=== PATIENT | male | born 1985 | race Caucasian/White ===

== ENCOUNTER 2018-06-06 01:01 | Emergency (ER) | payer SELFPAY ==
[~2018-06-06] VITALS: Ht 170.2 cm; Wt 70.3 kg
[2018-06-06] MEDS ORDERED: GLUCAGON,HUMAN RECOMBINANT 1 MG VIAL IVP ONE (01:15)
[2018-06-06] MEDS ORDERED: GLUCAGON,HUMAN RECOMBINANT 1 MG VIAL ONE (01:20)
--- NOTE | 2018-06-06 02:38 | NUR ---
Patient does not wish to proceed with medical care recommended by Dr. PEREZ. Patient given information related to possible complications, up to and including , which could occur as a result of leaving the hospital at this time. Patient verbalizes understanding of risks involved due to leaving against medical advice. Patient has signed AMA form. Written and verbal after care instructions given. Patient verbalizes understanding of instructions.
== END 2018-06-06 02:40 | disposition home or self-care (01) ==
LOC: ER 01:11
DX: T18.128A Food in esophagus causing other injury, initial encounter (principal); X58.XXXA Exposure to other specified factors, initial encounter; Y93.89 Activity, other specified; Y92.89 Other specified places as the place of occurrence of the external cause; Y99.8 Other external cause status
CPT/HCPCS: 96374; 99284; J1610; A4663